=== PATIENT | male | born 1940 | race Caucasian/White ===

== ENCOUNTER 2023-02-11 12:42 | Emergency (ER) | payer OTHER ==
[~2023-02-11] VITALS: Ht 172.7 cm; Wt 83.9 kg
[2023-02-11 13:12] LABS: BASOPHILS % (AUTO) 0.5 % (0.0-5.0); EOSINOPHILS % (AUTO) 9.5 % (0.0-8.0); HEMATOCRIT 45.2 % (42-54); LYMPHOCYTES % (AUTO) 11.7 % (21.0-51.0); MEAN CORPUSCULAR HEMOGLOBIN 30.1 pg (27.0-33.0); MEAN CORPUSCULAR HGB CONC 32.7 g/dL (32.0-36.0); MEAN CORPUSCULAR VOLUME 92.1 fL (79-99); MONOCYTES % (AUTO) 9.2 % (3.0-13.0); NEUTROPHILS % (AUTO) 68.4 % (40.0-77.0); PLATELET COUNT (AUTO) 293 K/uL (130-400); RED BLOOD CELL COUNT(AUTO) 4.91 MIL/uL (4.50-6.20); RED CELL DISTRIBUTION WIDTH 13.1 % (11.0-15.5); WHITE BLOOD COUNT (AUTO) 13.1 K/uL (4.8-10.8)
[2023-02-11 13:24] LABS: POTASSIUM 4.2 mmol/L (3.5-5.1)
[2023-02-11 13:28] LABS: ALBUMIN 3.1 g/dL (3.5-5.0); MAGNESIUM 2.1 mg/dL (1.80-2.40); TOTAL PROTEIN, SERUM 6.7 g/dL (6.0-8.3)
[2023-02-11 13:45] LABS: B-TYPE NATRIURETIC PEPTIDE 90 pg/mL (0-100)
[2023-02-11 14:47] LABS: ABG BASE EXCESS -0.1 mmol/L (-2.0-3.0); ABG HCO3 23.5 mmol/L (21.0-28.0); ABG OXYGEN SATURATION 92.2 % (95.0-99.0); ABG PCO2 35 mmHg (35-48)
[2023-02-11] MEDS ORDERED: IPRATROPIUM/ALBUTEROL SULFATE 3 ML SOLUTION IH ONE (15:00)
[2023-02-11] MEDS ORDERED: IOHEXOL-350 75 ML VIAL IV ONE (16:03)
[2023-02-11] MEDS ORDERED: CEFTRIAXONE 1G VIAL IVPB ONE (18:00)
[2023-02-11] MEDS ORDERED: AZITHROMYCIN 250 MG TABLET PO ONE (18:00)
[2023-02-11] MEDS ORDERED: AZIT250T9 PO (18:43)
[2023-02-11 18:48] VITALS: BP 143/61
== END 2023-02-11 18:54 | disposition home or self-care (01) ==
LOC: EDH 12:42
DX: R00.2 Palpitations (principal); J18.9 Pneumonia, unspecified organism; Z90.49 Acquired absence of other specified parts of digestive tract; Z79.899 Other long term (current) drug therapy
CPT/HCPCS: 99285; 71270; 71045; 83735; 84484; 80053; 82803; 83880; 85025; 85378; 36415; 93005 ×2; 36600; 94640; J0696; Q9967

== ENCOUNTER → 2023-03-05 | Outpatient (CLI) | payer OTHER ==
[~2023-03-05] MED LIST: AZIT250T9 PO
== END | disposition home or self-care (01) ==
LOC: SHCH 10:48
PROVIDERS: ATTEND Internal Medicine Cardiovascular Disease
DX: I08.3 Combined rheumatic disorders of mitral, aortic and tricuspid valves (principal); R00.0 Tachycardia, unspecified; R00.2 Palpitations
CPT/HCPCS: 93306